=== PATIENT | male | born 1980 | race Two or more races ===

== ENCOUNTER 2017-06-16 10:01 | Emergency (ER) | payer BC, OTHER ==
[2017-06-16] MEDS ORDERED: Alum Hydroxide/Mag Hydroxide 15 ML, Lidocaine 2% 15 ML PO STA ×2 (10:43)
[2017-06-16] MEDS ORDERED: Ondansetron 8 MG Tab.DIS PO STA (10:43)
--- NOTE | 2017-06-16 10:45 | EDM.PDOC ---
ED HPI GENERAL MEDICAL PROBLEM - General Chief Complaint: Abdominal Pain Stated Complaint: vomiting Time Seen by Provider: 06/16/17 10:01 Source of Information: Reports: Patient, Family History Limitations: Reports: No Limitations - History of Present Illness INITIAL COMMENTS - FREE TEXT/NARRATIVE: 36 y.o.b.m came to the ed with his family due to vomiting and epigastric pain after taking Mobic (NSAID) for right shoulder pain. He has HTN and is on Lisinopril but did not take lisinopril in the past few days. Pt was vomiting multiple times shortly after he took Mobic. No F/C, no dizziness, no other acute medical issues. BP 154/116 puls 105 temp 36.7 Pulse ox 100. Onset: Today Onset Date: 06/16/17 Onset Time: 07:00 Duration: Hour(s): Location: Reports: Abdomen (epigastric) Epigastric/abdomen Pain Score (Numeric/FACES): 7 - Related Data Allergies Allergy/AdvReac Type Severity Reaction Status Date / Time No Known Allergies Allergy Verified 03/15/15 20:19 Home Meds: Home Meds Cyclobenzaprine HCl [Cyclobenzaprine HCl] 10 mg PO TID PRN 04/16/16 [History] Ciclopirox Olamine [Ciclopirox] 1 applic BID 06/16/17 [History] Cyclobenzaprine [Flexeril] 10 mg PO BEDTIME 06/16/17 [History] Famotidine [Pepcid] 20 mg PO BID #20 tablet 06/16/17 [Rx] Lisinopril [Lisinopril] 20 mg DAILY 06/16/17 [History] Meloxicam [Meloxicam] 7.5 mg DAILY 06/16/17 [History] Ondansetron [Zofran ODT] 4 mg PO Q6H PRN #8 tab.dis 06/16/17 [Rx] traMADol [Ultram] 50 mg PO Q4H PRN #8 tab 06/16/17 [Rx] Past Medical History - Past Health History Medical/Surgical History: Denies Medical/Surgical History Cardiovascular History: Reports: Hypertension Respiratory History: Reports: Asthma Musculoskeletal History: Reports: Other (See Below) Other Musculoskeletal History: R rotator cuff tear, is receiving PT for same. Neurological History: Reports: Migraines - Infectious Disease History Infectious Disease History: Reports: Chicken Pox - Past Surgical History Musculoskeletal Surgical History: Reports: None Social & Family History - Family History Family Medical History: Noncontributory - Tobacco Use Smoking Status *Q: Current Every Day Smoker Years of Tobacco use: 15 Packs/Tins Daily: 1.5 - Caffeine Use Caffeine Use: Reports: Soda, Tea - Alcohol Use Days Per Week of Alcohol Use: 2 Number of Drinks Per Day: 8 Total Drinks Per Week: 16 - Recreational Drug Use Recreational Drug Use: No ED ROS GENERAL - Review of Systems Review Of Systems: See Below Constitutional: Reports: No Symptoms HEENT: Reports: No Symptoms Respiratory: Reports: No Symptoms Cardiovascular: Reports: No Symptoms Endocrine: Reports: No Symptoms GI/Abdominal: Reports: Abdominal Pain : Reports: No Symptoms Musculoskeletal: Reports: Shoulder Pain Skin: Reports: No Symptoms Neurological: Reports: No Symptoms Psychiatric: Reports: No Symptoms Hematologic/Lymphatic: Reports: No Symptoms Immunologic: Reports: No Symptoms ED EXAM, GI/ABD - Physical Exam Exam: See Below Exam Limited By: No Limitations General Appearance: Alert, WD/WN, Mild Distress Eyes: Bilateral: Normal Appearance Ears: Normal External Exam Nose: Normal Inspection Throat/Mouth: Normal Inspection, Normal Lips, Normal Teeth, No Airway Compromise Head: Atraumatic, Normocephalic Neck: Normal Inspection, Supple, Non-Tender Respiratory/Chest: No Respiratory Distress, Lungs Clear, Normal Breath Sounds Cardiovascular: Normal Peripheral Pulses, Regular Rate, Rhythm, No Edema GI/Abdominal Exam: Normal Bowel Sounds, No Distention, No Abnormal Bruit, No Mass, Pelvis Stable, Tender (epigastric tenderness) (Male) Exam: Deferred Rectal (Males) Exam: Deferred Back Exam: Normal Inspection, Full Range of Motion Extremities: Normal Inspection, Normal Range of Motion, Non-Tender, No Pedal Edema, Normal Capillary Refill Neurological: Alert, Oriented, CN II-XII Intact, Normal Cognition, Normal Gait, No Motor/Sensory Deficits Psychiatric: Normal Affect, Normal Mood Skin Exam: Warm, Dry, Intact, Normal Color, No Rash Lymphatic: No Adenopathy Course - Vital Signs Text/Narrative:: 36 y.o.b.m came to the ed with his family due to vomiting and epigastric pain after taking Mobic (NSAID) for right shoulder pain. He has HTN and is on Lisinopril but did not take lisinopril in the past few days. Pt was vomiting multiple times shortly after he took Mobic. No F/C, no dizziness, no other acute medical issues. BP 154/116 puls 105 temp 36.7 Pulse ox 100. PE: epigatric pain Impression: Gastritis, pos Meds related Tx: Zofran, GI cocktail, Lisinopril Reexam: 100% improved Plan: D/C with instructions Last Recorded V/S: Last Vital Signs Temp 36.7 C 06/16/17 10:05 Pulse 105 H 06/16/17 10:05 Resp 18 06/16/17 12:01 BP 183/109 H 06/16/17 12:01 Pulse Ox 100 06/16/17 12:01 - Orders/Labs/Meds Orders: Active Orders 24 hr Category Date Time Status Lisinopril [Prinivil] Med 06/16/17 12:00 Active 20 mg PO DAILY Medication Orders Lisinopril (Prinivil) 20 mg PO DAILY GEE Last Admin: 06/16/17 11:48 Dose: 20 mg Meds: Medications Generic Name Dose Route Start Last Admin Trade Name Freq PRN Reason Stop Dose Admin Lisinopril 20 mg 06/16/17 12:00 06/16/17 11:48 Prinivil PO 20 mg DAILY GEE Administration Discontinued Medications Generic Name Dose Route Start Last Admin Trade Name Freq PRN Reason Stop Dose Admin Al Hydroxide/Mg Hydroxide 15 0 ml 06/16/17 10:43 06/16/17 10:59 ml/ Lidocaine HCl 15 ml PO 06/16/17 10:44 15 ml ONETIME STA Administration Lisinopril/HCTZ 1 tab 06/16/17 11:40 06/16/17 11:49 Lisinopril-Hctz 20-25 Mg PO 06/16/17 11:41 Not Given DAILY STA Lisinopril 20 mg 06/16/17 11:43 06/16/17 11:48 Prinivil PO 06/16/17 11:44 Not Given ONETIME STA Lisinopril Confirm 06/16/17 11:46 Prinivil Administered 06/16/17 11:47 Dose 20 mg .ROUTE .STK-MED ONE Ondansetron HCl 8 mg 06/16/17 10:43 06/16/17 10:48 Zofran Odt PO 06/16/17 10:44 8 mg ONETIME STA Administration Departure - Departure Time of Disposition: 11:33 Disposition: Home, Self-Care 01 Condition: Good Clinical Impression: Gastritis Qualifiers: Gastritis type: unspecified gastritis Chronicity: acute Gastritis bleeding: without bleeding Qualified Code(s): K29.00 - Acute gastritis without bleeding Sprain of shoulder, right Qualifiers: Encounter type: subsequent encounter Shoulder sprain type: unspecified sprain Qualified Code(s): S43.401D - Unspecified sprain of right shoulder joint, subsequent encounter Hypertension Qualifiers: Hypertension type: essential hypertension Qualified Code(s): I10 - Essential ( primary) hypertension - Discharge Information Prescriptions: Famotidine [Pepcid] 20 mg PO BID #20 tablet Ondansetron [Zofran ODT] 4 mg PO Q6H PRN #8 tab.dis PRN Reason: Nausea traMADol [Ultram] 50 mg PO Q4H PRN #8 tab PRN Reason: severe r shoulder pain Instructions: Gastritis, Adult, [id number], Hypertension, [id number] Referrals: Alaina Triana PA-C [Primary Care Provider] - Forms: ED Department Discharge, ED Return to Work/School Form Additional Instructions: Please take your BP meds daily. Please avoid etoh, spicy food take Zofran, pepcid as recommended, Ultram for severe pain, please f/u with your PMD, please come back if your symptoms get worse acutely - My Orders Last 24 Hours: My Active Orders 06/16/17 12:00 Lisinopril [Prinivil] 20 mg PO DAILY - Assessment/Plan Last 24 Hours: My Active Orders 06/16/17 12:00 Lisinopril [Prinivil] 20 mg PO DAILY
[2017-06-16] MEDS ORDERED: Hydrochlorothiazide/Lisinopril 25-20 MG Tab PO STA (11:40)
[2017-06-16] MEDS ORDERED: Lisinopril 5 MG Tab PO STA (11:43)
[2017-06-16] MEDS ORDERED: Lisinopril 20 MG Tab ONE (11:46)
[2017-06-16] MEDS ORDERED: Lisinopril 20 MG Tab PO SCH (12:00)
[2017-06-16 12:14] VITALS: BP 183/109
== END 2017-06-16 12:10 | disposition home or self-care (01) ==
LOC: FB.ED 10:01
DX: K29.00 Acute gastritis without bleeding (principal); S43.401D Unspecified sprain of right shoulder joint, subsequent encounter; I10 Essential (primary) hypertension; J45.909 Unspecified asthma, uncomplicated; F17.210 Nicotine dependence, cigarettes, uncomplicated; Z79.899 Other long term (current) drug therapy; X58.XXXD Exposure to other specified factors, subsequent encounter
CPT/HCPCS: 99283; A9270

== ENCOUNTER 2018-01-24 17:11 | Emergency (ER) | payer OTHER ==
[2018-01-24 18:17] VITALS: BP 140/89
--- NOTE | 2018-01-29 08:20 | ER ---
DATE SEEN: 01/24/2018 TIME SEEN: The patient is seen at 1722 hours. HISTORY OF PRESENT ILLNESS: The patient is a 37-year-old man who smokes at least a pack of cigarettes a day and drank a 12-pack approximately 2 hours ago, and now feels weak, not right, and feels like taking a nap. He notes he is more tired than usual and feels a lot of stress. His is here with him. He smokes more than a pack a day. Works at a [employer] in [facility]. Denies using street drugs. He denies recent head trauma, fever, chills, cough, sore throat, chest pain, irregular heartbeat, abdominal discomfort, back pain, arm pain, jaw pain, neck pain, and arthritis or myalgia or paresis or weakness or seizures or recent motor vehicle accident or head trauma. PAST MEDICAL HISTORY: Hypertension and gastritis. MEDICATIONS: The patient is not on any medicines currently. REVIEW OF SYSTEMS: Negative except for noted above. PHYSICAL EXAMINATION: VITAL SIGNS: Blood pressure 141/92, heart rate 92 in sinus, respirations 18, oxygen saturation 100%. The patient is tall. He is very appropriate. Not inebriated. HEENT: PERRLA intact. Pharynx without abnormality. Has very significant smoking fetor to his breath. NECK: No cervical adenopathy, thyromegaly, masses in the neck, or tracheal tug. LUNGS: Clear without rales, rhonchi, or wheezes. HEART: S1, S2. No irregular rate or rhythm. ABDOMEN: Soft, no guarding, no abdominal discomfort. EXTREMITIES: Without edema. Dermis normal. Deep tendon reflexes normal upper and lower extremities. NEURO: Cranial nerves 2 through 12 intact. No pronator drift. No weakness in the upper and lower extremities. No tremor. No fasciculations of his tongue. Gait appropriate. No ataxia. ASSESSMENT: 1. Status post alcohol ingestion with mild depression. 2. Situational stress. 3. We spent a lot of time talking about his life, what he is doing, about his relationship and investing in the more important people in his life as opposed to his alcohol and narcissism of drinking alcohol to make himself feel better. He felt good about this, in fact he was enthusiastic and appreciated the discussion, shook my hand four times because he thanked me for bringing out things that he needed to think about. At this point, we discussed getting lab tests, and we felt that we had a shared decision in thinking that we would not do lab tests, and he felt comfortable with that decision also. The patient dismissed to follow up with doctor in a week and otherwise as necessary. 4. The patient wants to begin smoking cessation - his does not smoke. The patient will be started on Polacrilex/Nicorette lozenges, and also Nicoderm patches. If necessary, he would go to [facility] for smoking cessation, but plans on starting with this first. Instructions given at the use of Nicoderm patch and the lozenges. DIAGNOSES: 1. Alcoholism with alcohol abuse. He drinks more than 8 ounces a week or even more than 8 ounces of standard alcohol a day. 2. Tobacco abuse. PLAN: Smoking cessation and work with AA to discontinue his alcohol. /[id number] PEDRO/AMANDA
== END 2018-01-24 18:04 | disposition home or self-care (01) ==
LOC: FB.ED 17:11
DX: F10.229 Alcohol dependence with intoxication, unspecified (principal); I10 Essential (primary) hypertension; F17.210 Nicotine dependence, cigarettes, uncomplicated; F32.9 Major depressive disorder, single episode, unspecified; F43.9 Reaction to severe stress, unspecified; Z79.899 Other long term (current) drug therapy
CPT/HCPCS: 99283